=== PATIENT | female | born 1980 | race African-American/Black ===

== ENCOUNTER 2017-05-02 20:39 | Emergency (ER) | payer SELFPAY ==
[~2017-05-02] VITALS: Ht 182.9 cm; Wt 94.6 kg
[2017-05-02 20:43] VITALS: BP 136/80
--- NOTE | 2017-05-02 20:49 | NUR ---
TO ER BED 4
--- NOTE | 2017-05-02 20:50 | NUR ---
Patient being evaluated by physician at bedside.
[2017-05-02] MEDS ORDERED: NACL 0.9% 1,000 ML IV ONE (20:52)
[2017-05-02] MEDS ORDERED: methylPREDNISolone SS 125 MG in WATER STERILE 2 ML IV ONE (20:55)
[2017-05-02] MEDS ORDERED: FAMOTIDINE 20 MG/2 ML VIAL IVP ONE (20:55)
[2017-05-02] MEDS ORDERED: diphenhydrAMINE 50 MG/ML VIAL IVP ONE (20:55)
--- NOTE | 2017-05-02 21:00 | NUR ---
36Y/F PT. PRTESENTS TO ED WITH C/O RASHES ALL OVER HER BODY WITH ITCHINESS, REDNESS , S/P TAKING TRAIL MIX NUTS AN HOUR AGO WITH STUFFY NOSE, AND SOB. AAO X4, AMBULATORY WITH STAEDY GAIT. RESPIRATIONS ROOM AIR, EVEN AND UNLABORED. BL LUNG CLEAR. SKIN WARM AND DRY, GENERALIZED BODY RASH. VSS, ER MADE AWARE OF PT. STATUS.
--- NOTE | 2017-05-03 00:45 | NUR ---
Patient discharged with v/s stable. Written and verbal after care instructions given and explained. Patient alert, oriented and verbalized understanding of instructions. Ambulatory with steady gait. All questions addressed prior to discharge. ID band removed. Patient advised to follow up with PMD. Rx of PREDNSION, EPIPEN, BENADRYL AND PEPCID given. Patient educated on indication of medication including possible reaction and side effects. Opportunity to ask questions provided and answered. IV removed, catheter intact and site benign. Applied folded 4x4 gauze and tape to stop bleeding.
[2017-05-03 00:51] VITALS: BP 106/61
== END 2017-05-03 00:45 | disposition home or self-care (01) ==
LOC: MED 20:39
DX: L50.9 Urticaria, unspecified (principal)
CPT/HCPCS: 96361; 96372; 96374; 96375; 99284; J0171; J1200; J2930; J3490; J7030